=== PATIENT | female | born 1995 | race American Indian/Alaskan Native ===

== ENCOUNTER 2017-09-29 18:57 | Emergency (ER) | payer MEDICAID ==
[2017-09-29 19:03] VITALS: BMI 29.2
[2017-09-29 19:06] VITALS: BP 123/76; PULSE 92; RESP 18; TEMP 97.3; O2SAT 99
[2017-09-29 19:41] LABS: URINE BILIRUBIN NEGATIVE (NEGATIVE); URINE BLOOD NEGATIVE (NEGATIVE); URINE GLUCOSE (UA) NEGATIVE (NEGATIVE); URINE LEUKOCYTE ESTERASE NEGATIVE Leu/uL (NEGATIVE); URINE PROTEIN NEGATIVE mg/dL (<30 mg/dL); URINE UROBILINOGEN 0.2 E.U./dL (<1 E.U./dL)
[2017-09-29 19:55] LABS: URINE APPEARANCE CLEAR (CLEAR); URINE COLOR YELLOW (YELLOW)
[2017-09-29 20:03] LABS: HCG,QUALITATIVE URINE POSITIVE (NEGATIVE)
[2017-09-29 20:43] LABS: BASO # 0.01 K/mm3 (0.0-2.0); BASO % 0.2 % (0.0-3.0); EOS % 0.5 % (1.5-5.0); GRAN # 4.48 (1.4-6.5); GRAN % 68.6 % (50.0-68.0); HEMOGLOBIN 11.4 g/dL (12.0-16.0); LYMPH # 1.4 (1.2-3.4); LYMPH % 20.9 % (22.0-35.0); MEAN CELL VOLUME 73.3 fl (80.0-105.0); MEAN CORPUSCULAR HEMOGLOBIN 24.2 pg (25.0-35.0); MEAN CORPUSCULAR HGB CONC 32.9 g/dl (31.0-37.0); MEAN PLATELET VOLUME 10.3 fl (7.0-11.0); MONO # 0.6 (0.1-0.6); MONO % 9.8 % (1.0-6.0); RBC 4.72 10^6/uL (3.5-6.1); RED CELL DISTRIBUTION WIDTH 15.1 % (11.5-14.5); WHITE BLOOD COUNT 6.5 10^3/ul (4.5-11.0)
[2017-09-29 20:47] LABS: INR 1.03; PARTIAL THROMBOPLASTIN TIME 26.8 Seconds (25.1-36.5); PROTHROMBIN TIME 11.8 SECONDS (9.4-12.5)
[2017-09-29 20:53] LABS: ALB/GLOB RATIO 1.1 (1.1-1.8); ALT/SGPT 10 U/L (7-56); AST/SGOT 17 U/L (14-36); BLOOD UREA NITROGEN 6 mg/dL (7-21); CALCIUM 9.1 mg/dL (8.4-10.5); GFR NON-AFRICAN AMERICAN > 60
--- NOTE | 2017-09-29 21:29 | ED PDOC ---
Arrival/HPI - General Historian: Patient <Orlin Hu A - Last Filed: 09/29/17 22:57> <Yan Cueto - Last Filed: 09/29/17 23:25> - General Chief Complaint: Abdominal Pain Time Seen by Provider: 09/29/17 19:20 - History of Present Illness Narrative History of Present Illness (Text): 09/29/17 21:22 22yo female who present with complaint of lower back and suprapubic abdominal pain x 2days. States her LMP was in June and she is currently 10wks . she also report chronic lower back pain. States she does physical therapy currently. She denies vaginal bleeding, nausea, vomiting, diarreha, constipation, trauma, fever, chills, any other complaint. (Orlin Hu A) Past Medical History - Provider Review Nursing Documentation Reviewed: Yes - Infectious Disease Hx of Infectious Diseases: None - Psychiatric Hx Substance Use: Yes - Anesthesia Hx Anesthesia: No <Orlin Hu A - Last Filed: 09/29/17 22:57> Family/Social History - Physician Review Nursing Documentation Reviewed: Yes Family/Social History: Unknown Family HX Smoking Status: Never Smoked Hx Alcohol Use: Yes Frequency of alcohol use: Socially Hx Substance Use: Yes Substance used: marijuana <Orlin Hu A - Last Filed: 09/29/17 22:57> Allergies/Home Meds <Orlin Hu A - Last Filed: 09/29/17 22:57> <Yan Cueto - Last Filed: 09/29/17 23:25> Allergies/Adverse Reactions: Allergies No Known Allergies Allergy (Verified 09/29/17 19:03) Home Medications: Home Meds Medication Instructions Recorded Confirmed No Known Home Med 09/29/17 09/29/17 Review of Systems - Physician Review All systems were reviewed & negative as marked: Yes - Review of Systems Constitutional: Normal Eyes: Normal ENT: Normal Respiratory: Normal Cardiovascular: Normal Gastrointestinal: Abdominal Pain. absent: Constipation, Diarrhea, Nausea, Vomiting, Hematemesis Genitourinary Female: Normal Musculoskeletal: Back Pain Skin: Normal Neurological: Normal Endocrine: Normal Hemo/Lymphatic: Normal Psychiatric: Normal <Orlin Hu A - Last Filed: 09/29/17 22:57> Physical Exam Vital Signs Reviewed: Yes Temperature: Afebrile Blood Pressure: Normal Pulse: Regular Respiratory Rate: Normal Appearance: Positive for: Well-Appearing, Non-Toxic, Comfortable Pain Distress: None Mental Status: Positive for: Alert and Oriented X 3 - Systems Exam Head: Present: Atraumatic, Normocephalic Pupils: Present: PERRL Extroacular Muscles: Present: EOMI Conjunctiva: Present: Normal Mouth: Present: Moist Mucous Membranes Neck: Present: Normal Range of Motion Respiratory/Chest: Present: Clear to Auscultation, Good Air Exchange. No: Respiratory Distress, Accessory Muscle Use Cardiovascular: Present: Regular Rate and Rhythm, Normal S1, S2. No: Murmurs Abdomen: No: Tenderness, Distention, Peritoneal Signs, Rebound, Guarding, McBurney's Point Tender, Rovsing's Sign Present Back: Present: Normal Inspection. No: Midline Tenderness, Paraspinal Tenderness , Pain with Leg Raise Upper Extremity: Present: Normal Inspection. No: Cyanosis, Edema Lower Extremity: Present: Normal Inspection. No: Edema Neurological: Present: GCS=15, CN II-XII Intact, Speech Normal Skin: Present: Warm, Dry, Normal Color. No: Rashes Psychiatric: Present: Alert, Oriented x 3, Normal Insight, Normal Concentration <Orlin Hu A - Last Filed: 09/29/17 22:57> Vital Signs Temp Pulse Resp BP Pulse Ox 09/29/17 22:27 99 09/29/17 19:06 97.3 F L 92 H 18 123/76 99 Medical Decision Making <Orlin Hu A - Last Filed: 09/29/17 22:57> <Yan Cueto - Last Filed: 09/29/17 23:25> ED Course and Treatment: 09/29/17 22:57 PT presented for stated history. She was not in any distress in ED. She denied vaginal bleeding in ED. Lab was reviewed and unremarkable age US IMPRESSION: 1. Single living intrauterine . 2. Gestational age 13 weeks 2 days ERNESTINE 04/04/2018 3. Negative uterus and cervix. Result was DW the pt and she was DC home. She have a OB and was advised to f/u with her OB. (FritzHappiness A) - Lab Interpretations Lab Results: 09/29/17 20:32 09/29/17 20:32 Lab Results 09/29/17 20:32: Beta HCG, Quant 69095.00 H 09/29/17 20:32: Sodium 140, Potassium 3.6, Chloride 104, Carbon Dioxide 25, Anion Gap 14, BUN 6 L, Creatinine 0.5 L, Est GFR ( Amer) > 60, Est GFR ( Non-Af Amer) > 60, Random Glucose 77, Calcium 9.1, Total Bilirubin 0.3, AST 17, ALT 10, Alkaline Phosphatase 62, Total Protein 7.5, Albumin 4.0, Globulin 3.6, Albumin/Globulin Ratio 1.1 09/29/17 20:32: PT 11.8, INR 1.03, APTT 26.8 09/29/17 20:32: WBC 6.5, RBC 4.72, Hgb 11.4 L, Hct 34.6 L, MCV 73.3 L, MCH 24.2 L, MCHC 32.9, RDW 15.1 H, Plt Count 245, MPV 10.3, Gran % 68.6 H, Lymph % (Auto ) 20.9 L, [place] % (Auto) 9.8 H, Eos % (Auto) 0.5 L, Baso % (Auto) 0.2, Gran # 4.48, Lymph # (Auto) 1.4, [place] # (Auto) 0.6, Eos # (Auto) 0.0, Baso # (Auto) 0.01 09/29/17 19:36: Urine Color Yellow, Urine Appearance Clear, Urine pH 7.0, Ur Specific [place] 1.010, Urine Protein Negative, Urine Glucose (UA) Negative, Urine Ketones Trace H, Urine Blood Negative, Urine Nitrate Negative, Urine Bilirubin Negative, Urine Urobilinogen 0.2, Ur Leukocyte Esterase Negative, Urine HCG, Qual Positive - RAD Interpretation Radiology Orders: 09/29/17 19:32 AGE [US] Stat - Medication Orders Current Medication Orders: Discontinued Medications Acetaminophen (Tylenol 325mg Tab) 650 mg PO STAT STA Stop: 09/29/17 19:33 Last Admin: 09/29/17 20:18 Dose: 650 mg - PA / CLINICAL UNIT COORDINATOR / Resident Statement / has reviewed & agrees with the documentation as recorded. <Yan Cueto - Last Filed: 09/29/17 23:25> Disposition/Present on Arrival - Present on Arrival Any Indicators Present on Arrival: No History of DVT/PE: No History of Uncontrolled Diabetes: No Urinary Catheter: No History of Decub. Ulcer: No History Surgical Site Infection Following: None - Disposition Have Diagnosis and Disposition been Completed?: Yes Disposition Time: 22:00 Patient Plan: Discharge <Orlin Hu - Last Filed: 09/29/17 22:57> <Yan Cueto - Last Filed: 09/29/17 23:25> - Disposition Diagnosis: Abdominal pain, Back pain Disposition: HOME/ ROUTINE Condition: STABLE Discharge Instructions (ExitCare): Chronic Pain (DC), Acute Abdomen (Belly Pain ), Adult (DC) Additional Instructions: Follow up with your OB Return to ED for any new symptoms Referrals: Kevin Cralos MD [Medical Doctor] - Follow up with primary Forms: [facility] (E[place]ian), WORK NOTE
--- NOTE | 2017-09-30 11:28 | US ---
Date of service: 09/29/2017 PROCEDURE: OB Pelvic Ultrasound HISTORY: /abdominal pain LMP: Lesser superior 06/27/2017 suggesting estimated gestational age of 13 weeks 2 days. COMPARISON: None available. FINDINGS: UTERUS: Gestational sac: A single viable intrauterine gestation is identified early in 2nd trimester within the intracavity with the developing placenta appearing posterior without definite abruption or previa. cardiac activity is recorded 156 beats per minute. Average ultrasonic age is 13 weeks 4 days. This is concordant with LMP derived dates. The following mean parameters were obtained: Biparietal diameter 2.2 cm corresponds to 13 weeks 4 days. Head circumference 9.0 corresponds to 14 weeks 0 days. Abdominal circumference 7.0 cm corresponds to 13 weeks 4 days. Femur length 1.1 cm corresponds to 13 weeks 3 days. AC/AC ratio 1.28 which falls within the normal range. Estimated weight 77.87 g (3 oz ). Estimated date of delivery 04/01/2018. Uterus measures 13.4 x 10.1 x 11.0 cm. No suspicious myometrial findings demonstrated grossly. CERVIX: Measures 3.7 cm. Long and closed. No cervical abnormality seen. RIGHT OVARY: Not identified. No suspicious adnexal mass or fluid collection appreciable. LEFT OVARY: Not identified. No suspicious adnexal mass or fluid collection appreciable. FREE FLUID: None. OTHER FINDINGS: None. IMPRESSION: A single viable intrauterine gestation is identified in variable lie with an average ultrasonic age of 13 weeks 4 days with cardiac activity measured to 156 beats per minute. Concordant with LMP derived dates as discussed above. Posterior fundal placenta. No abruption identified at this time. Standard anatomical survey can be more axially performed at a latter stage of gestation and was not attempted in this emergency requested sonographic exam. Concordant preliminary report from [facility], 03/30/2017.
== END 2017-09-29 22:27 | disposition home or self-care (01) ==
LOC: MERGE 18:57 → ED 18:57
DX: O26.891 Other specified pregnancy related conditions, first trimester (principal); R10.9 Unspecified abdominal pain; M54.5 Low back pain; Z3A.13 13 weeks gestation of pregnancy